=== PATIENT | male | born 1965 | race Caucasian/White ===

== ENCOUNTER 2017-12-25 19:09 | Emergency (ER) | payer MEDICAID ==
[~2017-12-25] VITALS: Ht 167.6 cm; Wt 100.0 kg
[~2017-12-25 19:09] MED LIST: CLIN300C53 PO; IBUP-1985 PO; LEVO500T2 PO
[2017-12-25] MEDS ORDERED: aspirin 81mg tab.chew PO ONE (19:15)
[2017-12-25] MEDS ORDERED: nitroGLYCERIN 0.4mg SUBLingual tab SL PRN (19:15)
[2017-12-25 19:38] LABS: BASOPHILS % (AUTO) 0.2 % (0-1); EOSINOPHILS # (AUTO) 0.2 X10'3 (0-0.9); EOSINOPHILS % (AUTO) 1.9 % (0-6); HEMOGLOBIN 14.4 g/dl (14.0-17.9); LYMPHOCYTES # (AUTO) 3.2 X10'3 (1.1-4.8); MEAN CORPUSCULAR HEMOGLOBIN 29.2 PG (27.0-31.0); MEAN CORPUSCULAR HGB CONC 34.3 % (33.0-36.5); MEAN CORPUSCULAR VOLUME 85.2 FL (78-98); MEAN PLATELET VOLUME 8.2 FL (7.4-10.4); MONOCYTES # (AUTO) 0.8 X10'3 (0-0.9); MONOCYTES % (AUTO) 8.8 % (2-12); NEUTROPHILS # (AUTO) 4.9 X10'3 (1.8-7.7); NEUTROPHILS % (AUTO) 54.1 % (42-75); PLATELET COUNT 294 X10'3 (140-440); RED BLOOD COUNT 4.94 X10'6 (4.70-6.10); RED CELL DISTRIBUTION WIDTH 13.9 % (11.5-14.5)
[2017-12-25 19:50] LABS: INR 0.9 INR; PARTIAL THROMBOPLASTIN TIME 25 SECONDS (22-32); PROTHROMBIN TIME 9.6 SECONDS (9.0-12.0)
[2017-12-25 19:56] LABS: ALANINE AMINOTRANSFERASE 117 U/L (12-78); ALBUMIN 3.7 G/DL (3.4-5.0); ALBUMIN/GLOBULIN RATIO 1.1 (1.1-1.5); ALKALINE PHOSPHATASE 86 IU/L (46-116); ANION GAP 10 (8-16); ASPARTATE AMINO TRANSFERASE 146 U/L (10-37); BILIRUBIN,TOTAL 0.7 MG/DL (0.1-1.0); BLOOD UREA NITROGEN 12 MG/DL (7-18); BUN/CREATININE RATIO 12.6 (5.4-32.0); CALCIUM 8.7 MG/DL (8.5-10.1); CHLORIDE 107 MMOL/L (99-107); CREATININE 0.95 MG/DL (0.60-1.10); GLUCOSE 167 MG/DL (70-104); POTASSIUM 3.8 MMOL/L (3.5-5.1); SODIUM 142 MMOL/L (135-145); TOTAL CARBON DIOXIDE 25.4 MMOL/L (24-32); TOTAL PROTEIN 7.1 G/DL (6.4-8.2); eGFR 83 ML/MIN
[2017-12-25 21:34] LABS: ETHANOL < 0.010 GM/DL (0.0-0.010)
[2017-12-25 21:48] LABS: CLARITY,URINE CLEAR (Clear); COLOR,URINE YELLOW (Yellow); GLUCOSE, URINE NEGATIVE (Neg); KETONES,URINE NEGATIVE (Neg); LEUKOCYTE ESTERASE ,URINE NEGATIVE (Neg); NITRITES, URINE NEGATIVE (Neg); OCCULT BLOOD,URINE NEGATIVE (Neg); PROTEIN,URINE NEGATIVE (Neg)
[2017-12-25 21:50] LABS: URINE AMPHETAMINE SCREEN NEGATIVE (Neg); URINE BARBITUATE SCREEN NEGATIVE (Neg); URINE BENZODIAZEPINES SCREEN NEGATIVE (Neg); URINE CANNABINOID SCREEN NEGATIVE (Neg); URINE COCAINE SCREEN NEGATIVE (Neg); URINE METHADONE SCREEN NEGATIVE (Neg); URINE OPIATE SCREEN NEGATIVE (Neg); URINE PHENCYCLIDINE SCREEN NEGATIVE (Neg)
[2017-12-25] MEDS ORDERED: amLODIPine 5mg tablet PO ONE (21:50)
[2017-12-25] MEDS ORDERED: nitroGLYCERIN 0.2mg/hour patch TD ONE (21:50)
[2017-12-25 21:53] LABS: UA COLLECTION TYPE VOIDED
[2017-12-25 23:18] VITALS: BP 191/114
== END 2017-12-25 23:20 | disposition home or self-care (01) ==
LOC: ER 19:10
DX: I10 Essential (primary) hypertension (principal); E11.9 Type 2 diabetes mellitus without complications; Z87.891 Personal history of nicotine dependence; Z88.0 Allergy status to penicillin; Z79.899 Other long term (current) drug therapy
CPT/HCPCS: 36415; 71045; 80053; 80305; 80320; 81003; 84484; 85025; 85610; 85730; 93005; 99285

== ENCOUNTER 2018-09-15 09:30 | Observation (INO) | payer MEDICAID ==
[~2018-09-15] VITALS: Ht 167.6 cm; Wt 109.1 kg
[2018-09-15] MEDS ORDERED: NO HOME MEDS (09:47)
[2018-09-15 09:59] LABS: BASOPHILS % (AUTO) 0.1 % (0-1); EOSINOPHILS # (AUTO) 0.2 X10'3 (0-0.9); EOSINOPHILS % (AUTO) 3.7 % (0-6); HEMATOCRIT 41.7 % (42.0-52.0); HEMOGLOBIN 13.8 g/dl (14.0-17.9); LYMPHOCYTES # (AUTO) 1.9 X10'3 (1.1-4.8); LYMPHOCYTES % (AUTO) 30.8 % (21-51); MEAN CORPUSCULAR HEMOGLOBIN 28.2 PG (27.0-31.0); MEAN CORPUSCULAR HGB CONC 33.1 % (33.0-36.5); MEAN CORPUSCULAR VOLUME 85.2 FL (78-98); MEAN PLATELET VOLUME 8.2 FL (7.4-10.4); MONOCYTES # (AUTO) 0.4 X10'3 (0-0.9); MONOCYTES % (AUTO) 6.8 % (2-12); NEUTROPHILS # (AUTO) 3.6 X10'3 (1.8-7.7); NEUTROPHILS % (AUTO) 58.6 % (42-75); PLATELET COUNT 298 X10'3 (140-440); RED BLOOD COUNT 4.89 X10'6 (4.70-6.10); RED CELL DISTRIBUTION WIDTH 13.6 % (11.5-14.5); WHITE BLOOD COUNT 6.2 X10'3 (4.5-11.0)
[2018-09-15] MEDS ORDERED: nitroGLYCERIN 0.4mg SUBLingual tab SL PRN ×3 (10:05→12:10)
[2018-09-15 10:11] LABS: PARTIAL THROMBOPLASTIN TIME 27 SECONDS (22-32); PROTHROMBIN TIME 10.3 SECONDS (9.0-12.0)
[2018-09-15 10:14] LABS: ALANINE AMINOTRANSFERASE 34 U/L (12-78); ALBUMIN 3.3 G/DL (3.4-5.0); ALBUMIN/GLOBULIN RATIO 1.1 (1.1-1.5); ALKALINE PHOSPHATASE 70 IU/L (46-116); ANION GAP 9 (8-16); ASPARTATE AMINO TRANSFERASE 29 U/L (10-37); BILIRUBIN,TOTAL 0.9 MG/DL (0.1-1.0); BLOOD UREA NITROGEN 16 MG/DL (7-18); BUN/CREATININE RATIO 15.5 (5.4-32.0); CALCIUM 8.6 MG/DL (8.5-10.1); CHLORIDE 106 MMOL/L (99-107); CREATININE 1.03 MG/DL (0.60-1.10); GLUCOSE 168 MG/DL (70-104); POTASSIUM 3.6 MMOL/L (3.5-5.1); SODIUM 143 MMOL/L (135-145); TOTAL PROTEIN 6.4 G/DL (6.4-8.2); eGFR 76 ML/MIN
[2018-09-15 10:28] LABS: D-DIMER 0.44 MG/L FEU (0-0.50)
[2018-09-15 10:36] LABS: MAGNESIUM 1.5 MG/DL (1.5-2.4)
[2018-09-15] MEDS ORDERED: MESSAGE TO PHARMACY PO ONE (12:10)
[2018-09-15] MEDS ORDERED: potassium Cl 20 mEq SR tablet PO PRN ×2 (12:10)
[2018-09-15] MEDS ORDERED: glucagon, human recombinant 1mg kit SUBCUT PRN (12:10)
[2018-09-15] MEDS ORDERED: dextrose 50%-water 50ml dispensing syringe IV PRN ×2 (12:10)
[2018-09-15] MEDS ORDERED: regadenoson 0.4mg/5ml syringe IV PRN (12:10)
[2018-09-15] MEDS ORDERED: acetaminophen 325mg tablet PO PRN ×2 (12:10)
[2018-09-15] MEDS ORDERED: magnesium 1gm/100ml D5W IVPB 100 ML IV PRN (12:10)
[2018-09-15] MEDS ORDERED: magnesium Cl slow-release 64mg tablet PO PRN (12:10)
[2018-09-15] MEDS ORDERED: metoprolol tartrate 1mg/ml inj IV PRN (12:10)
[2018-09-15] MEDS ORDERED: magnesium 4gm in 100ml NS 100 ML IV PRN (12:10)
[2018-09-15] MEDS ORDERED: morphine 2 MG/ML inj. syringe IV PRN ×2 (12:10)
[2018-09-15] MEDS ORDERED: insulin Lispro (HumaLOG) vial - multi-dose SQ SCH (12:10)
[2018-09-15] MEDS ORDERED: mag hydrox/Alum hydrox/simeth 30ml oral suspension PO PRN (12:10)
[2018-09-15] MEDS ORDERED: dextrose ORAL solution 15 GM/59 ML bottle PO PRN ×2 (12:10)
[2018-09-15] MEDS ORDERED: aminophylline 250mg/10ml inj. IV PRN (12:10)
[2018-09-15] MEDS ORDERED: potassium Cl 40MEQ/NS 500ml 500 ML IV PRN ×2 (12:10)
[2018-09-15] MEDS ORDERED: ondansetron/PF 4mg/2ml inj IV PRN (12:10)
[2018-09-15] MEDS ORDERED: magnesium hydroxide 30ml (MOM) UD suspension PO PRN (12:10)
[2018-09-15 19:00] VITALS: BP 176/81
[2018-09-15] MEDS ORDERED: temazepam 15mg capsule PO PRN (21:00)
[2018-09-15] MEDS ORDERED: insulin glargine (Lantus) pen - multi-dose SQ SCH (21:00)
[2018-09-15] MEDS: metoprolol tartrate 12.5mg (1/2 tablet) PO SCH (21:25)
[2018-09-15 23:00] VITALS: BP 167/76
[2018-09-16] VITALS (11 sets, daily range): BP systolic 154–173; BP diastolic 84–95
[2018-09-16 05:38] LABS: HEMATOCRIT 41.5 % (42.0-52.0); HEMOGLOBIN 13.6 g/dl (14.0-17.9); MEAN CORPUSCULAR HEMOGLOBIN 28.2 PG (27.0-31.0); MEAN CORPUSCULAR HGB CONC 32.8 % (33.0-36.5); MEAN PLATELET VOLUME 8.6 FL (7.4-10.4); PLATELET COUNT 280 X10'3 (140-440); RED BLOOD COUNT 4.82 X10'6 (4.70-6.10); RED CELL DISTRIBUTION WIDTH 13.3 % (11.5-14.5); WHITE BLOOD COUNT 7.4 X10'3 (4.5-11.0)
[2018-09-16 06:13] LABS: ALBUMIN 3.2 G/DL (3.4-5.0); ANION GAP 7 (8-16); BLOOD UREA NITROGEN 19 MG/DL (7-18); BUN/CREATININE RATIO 22.9 (5.4-32.0); CALCIUM 8.5 MG/DL (8.5-10.1); CHLORIDE 106 MMOL/L (99-107); CHOL/HDL RATIO 2.6 (0.00-4.99); CHOLESTEROL 125 MG/DL (0-200); CREATININE 0.83 MG/DL (0.60-1.10); GLUCOSE 114 MG/DL (70-104); HDL CHOLESTEROL 48 MG/DL (35-60); LDL CHOLESTEROL 71 MG/DL (50-100); MAGNESIUM 1.6 MG/DL (1.5-2.4); POTASSIUM 3.8 MMOL/L (3.5-5.1); SODIUM 142 MMOL/L (135-145); TOTAL CARBON DIOXIDE 28.7 MMOL/L (24-32); TRIGLYCERIDES 48 MG/DL (20-135); eGFR > 90 ML/MIN
[2018-09-16] MEDS ORDERED: K and/or MAG REPLACEMENT MC SCH (08:00)
[2018-09-16] MEDS: enoxaparin 40mg/0.4ml syringe SUBCUT SCH ×2 (08:18→08:23)
[2018-09-16] MEDS: metoprolol tartrate 12.5mg (1/2 tablet) PO SCH (08:18)
[2018-09-16] MEDS ORDERED: aspirin 325mg tablet PO SCH (08:30)
[2018-09-16] MEDS ORDERED: HYDROcodone/acetaminophen 5mg/325mg tablet PO PRN (09:25)
[2018-09-16] MEDS ORDERED: aminophylline inj. 10 ML IV ONE (10:49)
[2018-09-16] MEDS ORDERED: regadenoson 0.4mg/5ml syringe IV ONE (10:49)
== END 2018-09-16 15:03 | disposition home or self-care (01) ==
LOC: ER 09:30 → ED HOLD 12:07 → PCU 3S 16:04
PROVIDERS: ADMIT Family Medicine; ATTEND Family Medicine
DX: I20.9 Angina pectoris, unspecified (principal); I10 Essential (primary) hypertension; E78.00 Pure hypercholesterolemia, unspecified; K21.9 Gastro-esophageal reflux disease without esophagitis; E66.01 Morbid (severe) obesity due to excess calories; E11.65 Type 2 diabetes mellitus with hyperglycemia; Z87.891 Personal history of nicotine dependence
CPT/HCPCS: 36415; 71045; 78451; 80048; 80053; 80061; 82948; 83036; 83735; 83880; 84484; 85025; 85027; 85379; 85610; 85730; 93005; 93017; 93306; 96372; 96374; 99284; A9500; G0378; J0280; J2405; J1650; J1815; Q2037

== ENCOUNTER 2019-03-22 18:18 | Emergency (ER) | payer MEDICAID ==
[~2019-03-22] VITALS: Ht 167.6 cm; Wt 110.0 kg
[~2019-03-22 18:18] MED LIST changes: -CLIN300C53 PO; -IBUP-1985 PO; -LEVO500T2 PO; +NO HOME MEDS
[2019-03-22 18:39] VITALS: BP 178/88
[2019-03-22] MEDS ORDERED: SKIN30CL4 TOP (19:20)
[2019-03-22] MEDS ORDERED: triamcinolone acetonide 40mg/ml inj IM ONE (19:20)
== END 2019-03-22 19:34 | disposition home or self-care (01) ==
LOC: ER 18:19
DX: L23.7 Allergic contact dermatitis due to plants, except food (principal); E78.00 Pure hypercholesterolemia, unspecified; I10 Essential (primary) hypertension; K21.9 Gastro-esophageal reflux disease without esophagitis; E11.9 Type 2 diabetes mellitus without complications; Z88.0 Allergy status to penicillin; Z79.899 Other long term (current) drug therapy; Z91.013 Allergy to seafood
CPT/HCPCS: 96372; 99283; J3301

== ENCOUNTER 2019-04-04 13:48 | Emergency (ER) | payer MEDICAID ==
[~2019-04-04] VITALS: Ht 167.6 cm; Wt 104.5 kg
[~2019-04-04 13:48] MED LIST changes: +SKIN30CL4 TOP
[2019-04-04 14:08] VITALS: BP 163/87
[2019-04-04] MEDS ORDERED: SULF1TAB49 PO (15:29)
== END 2019-04-04 15:40 | disposition home or self-care (01) ==
LOC: ER 13:48
DX: L03.116 Cellulitis of left lower limb (principal); E78.00 Pure hypercholesterolemia, unspecified; I10 Essential (primary) hypertension; K21.9 Gastro-esophageal reflux disease without esophagitis; E11.9 Type 2 diabetes mellitus without complications; Z88.0 Allergy status to penicillin; Z91.013 Allergy to seafood
CPT/HCPCS: 99284

== ENCOUNTER 2019-06-20 11:49 | Emergency (ER) | payer MEDICAID ==
[~2019-06-20] VITALS: Ht 167.6 cm; Wt 105.5 kg
[2019-06-20 11:52] VITALS: BP 171/85
[2019-06-20] MEDS ORDERED: ACET-812 PO (12:39)
[2019-06-20] MEDS ORDERED: PRED20TA PO (12:39)
[2019-06-20] MEDS ORDERED: IBUP-1984 PO (12:39)
[2019-06-20] MEDS ORDERED: acetaminophen 325mg tablet PO ONE (12:40)
[2019-06-20] MEDS ORDERED: ketorolac trometh inj. 60 MG/2 ML VIAL IM ONE (12:40)
[2019-06-20] MEDS ORDERED: predniSONE 20 mg tablet PO ONE (12:40)
== END 2019-06-20 12:59 | disposition home or self-care (01) ==
LOC: ER 11:49
DX: M25.551 Pain in right hip (principal); E78.00 Pure hypercholesterolemia, unspecified; I10 Essential (primary) hypertension; K21.9 Gastro-esophageal reflux disease without esophagitis; E11.9 Type 2 diabetes mellitus without complications; Z88.0 Allergy status to penicillin; Z91.013 Allergy to seafood; Z79.899 Other long term (current) drug therapy; W01.0XXA Fall on same level from slipping, tripping and stumbling without subsequent striking against object, initial encounter; Y93.89 Activity, other specified; Y92.89 Other specified places as the place of occurrence of the external cause; Y99.8 Other external cause status
CPT/HCPCS: 96372; 99283; J1885; J7512

== ENCOUNTER 2019-08-17 12:05 | Emergency (ER) | payer MEDICAID ==
[~2019-08-17] VITALS: Ht 167.6 cm; Wt 230.0 kg
[~2019-08-17 12:05] MED LIST changes: +ACET-812 PO
[2019-08-17 12:19] VITALS: BP 158/87
[2019-08-17] MEDS ORDERED: triamcinolone acetonide 40mg/ml inj IM ONE (13:40)
== END 2019-08-17 13:55 | disposition home or self-care (01) ==
LOC: ER 12:05
DX: L23.7 Allergic contact dermatitis due to plants, except food (principal); E78.00 Pure hypercholesterolemia, unspecified; I10 Essential (primary) hypertension; K21.9 Gastro-esophageal reflux disease without esophagitis; E11.9 Type 2 diabetes mellitus without complications; F12.90 Cannabis use, unspecified, uncomplicated; Z88.0 Allergy status to penicillin; Z91.018 Allergy to other foods; Z79.899 Other long term (current) drug therapy
CPT/HCPCS: 96372; 99283; J3301

== ENCOUNTER 2019-09-11 13:58 | Emergency (ER) | payer MEDICAID ==
[~2019-09-11] VITALS: Ht 167.6 cm; Wt 104.0 kg
[2019-09-11 14:01] VITALS: BP 179/92
[2019-09-11] MEDS ORDERED: diphenhydrAMINE 2%/zinc acetate cream TP STA (15:24)
[2019-09-11] MEDS ORDERED: triamcinolone acetonide 40mg/ml inj IM ONE (15:25)
[2019-09-11] MEDS ORDERED: PRED20TA PO (15:43)
[2019-09-11] MEDS ORDERED: DIPH25CA83 PO (15:43)
== END 2019-09-11 15:54 | disposition home or self-care (01) ==
LOC: ER 13:59
DX: L23.7 Allergic contact dermatitis due to plants, except food (principal); E78.00 Pure hypercholesterolemia, unspecified; I10 Essential (primary) hypertension; K21.9 Gastro-esophageal reflux disease without esophagitis; E11.9 Type 2 diabetes mellitus without complications; F12.90 Cannabis use, unspecified, uncomplicated; Z88.0 Allergy status to penicillin; Z91.013 Allergy to seafood; Z79.899 Other long term (current) drug therapy
CPT/HCPCS: 96372; 99283; J3301

== ENCOUNTER 2020-04-03 14:11 | Emergency (ER) | payer MEDICAID ==
[~2020-04-03] VITALS: Ht 167.6 cm; Wt 125.0 kg
[~2020-04-03 14:11] MED LIST changes: +DIPH25CA83 PO
[2020-04-03 14:27] VITALS: BP 196/97
[2020-04-03] MEDS ORDERED: HYDROcodone/acetaminophen 5mg/325mg tablet PO ONE (15:50)
[2020-04-03] MEDS ORDERED: ondansetron 4mg rapidly disintigrating tab PO ONE (15:50)
[2020-04-03] MEDS ORDERED: IBUP-1984 PO (16:26)
== END 2020-04-03 17:07 | disposition home or self-care (01) ==
LOC: ER 14:11
DX: S93.402A Sprain of unspecified ligament of left ankle, initial encounter (principal); E78.00 Pure hypercholesterolemia, unspecified; I10 Essential (primary) hypertension; K21.9 Gastro-esophageal reflux disease without esophagitis; E11.9 Type 2 diabetes mellitus without complications; F12.90 Cannabis use, unspecified, uncomplicated; Z88.0 Allergy status to penicillin; Z91.018 Allergy to other foods; Z88.8 Allergy status to other drugs, medicaments and biological substances; Z79.899 Other long term (current) drug therapy; X50.1XXA Overexertion from prolonged static or awkward postures, initial encounter; Y93.89 Activity, other specified; Y92.89 Other specified places as the place of occurrence of the external cause; Y99.8 Other external cause status
CPT/HCPCS: 73610; 73630; 99284

== ENCOUNTER 2020-04-14 10:59 | Emergency (ER) | payer MEDICAID ==
[~2020-04-14] VITALS: Ht 167.6 cm; Wt 111.8 kg
[2020-04-14 12:36] VITALS: BP 180/97
[2020-04-14] MEDS ORDERED: LIDOcaine 1% W/epiNEPHrine 1:200,000 10ml vial IJ ONE (13:15)
[2020-04-14] MEDS ORDERED: rabies immune globulin/PF 150 unit/ml inj IMVAC ONE (13:15)
[2020-04-14] MEDS ORDERED: rabies vaccine (PCEC)/PF 2.5 unit kit IMVAC ONE (13:15)
[2020-04-14] MEDS ORDERED: SULF1TAB49 PO (15:15)
[2020-04-14] MEDS ORDERED: METR500T PO (15:15)
[2020-04-14] MEDS ORDERED: HYDR-4383 PO (15:39)
== END 2020-04-14 15:44 | disposition home or self-care (01) ==
LOC: ER 11:00
DX: S61.451A Open bite of right hand, initial encounter (principal); E78.00 Pure hypercholesterolemia, unspecified; I10 Essential (primary) hypertension; K21.9 Gastro-esophageal reflux disease without esophagitis; E11.9 Type 2 diabetes mellitus without complications; F12.90 Cannabis use, unspecified, uncomplicated; Z20.3 Contact with and (suspected) exposure to rabies; Z72.89 Other problems related to lifestyle; Z88.0 Allergy status to penicillin; Z88.8 Allergy status to other drugs, medicaments and biological substances; Z79.2 Long term (current) use of antibiotics; Z79.899 Other long term (current) drug therapy; W54.0XXA Bitten by dog, initial encounter; Y93.89 Activity, other specified; Y92.89 Other specified places as the place of occurrence of the external cause; Y99.8 Other external cause status
CPT/HCPCS: 12004; 29125; 90375; 90471; 90675; 96372; 99284

== ENCOUNTER 2020-07-05 13:53 | Emergency (ER) | payer MEDICAID ==
[~2020-07-05] VITALS: Ht 167.6 cm; Wt 114.0 kg
[~2020-07-05 13:53] MED LIST changes: +HYDR-4383 PO
--- NOTE | 2020-07-05 14:23 | NUR ---
Patient ambulated to room from lobby with steady gait.
[2020-07-05] MEDS ORDERED: ketorolac tromethamine 15mg/ml inj. IV ONE (14:30)
[2020-07-05 14:53] LABS: CLARITY,URINE CLOUDY (Clear); COLOR,URINE YELLOW (Yellow); GLUCOSE, URINE NEGATIVE (Neg); KETONES,URINE NEGATIVE (Neg); LEUKOCYTE ESTERASE ,URINE NEGATIVE (Neg); NITRITES, URINE NEGATIVE (Neg); OCCULT BLOOD,URINE LARGE (Neg); PROTEIN,URINE NEGATIVE (Neg); UROBILINOGEN,URINE 0.2 E.U/dL (0.2-1.0)
[2020-07-05 14:54] LABS: UA COLLECTION TYPE CLN CATCH MIDSTREAM
[2020-07-05 14:56] LABS: BASOPHILS % (AUTO) 0.4 % (0-1); EOSINOPHILS # (AUTO) 0.3 X10'3 (0-0.9); EOSINOPHILS % (AUTO) 2.5 % (0-6); HEMATOCRIT 43.5 % (42.0-52.0); HEMOGLOBIN 14.4 g/dl (14.0-17.9); LYMPHOCYTES # (AUTO) 2.6 X10'3 (1.1-4.8); LYMPHOCYTES % (AUTO) 25.7 % (21-51); MEAN CORPUSCULAR HEMOGLOBIN 28.6 PG (27.0-31.0); MEAN CORPUSCULAR HGB CONC 33.2 g/dL (33.0-36.5); MEAN CORPUSCULAR VOLUME 86.2 FL (78-98); MONOCYTES # (AUTO) 1.1 X10'3 (0-0.9); MONOCYTES % (AUTO) 10.4 % (2-12); NEUTROPHILS # (AUTO) 6.2 X10'3 (1.8-7.7); PLATELET COUNT 292 X10'3 (140-440); RED BLOOD COUNT 5.04 X10'6 (4.70-6.10); WHITE BLOOD COUNT 10.1 X10'3 (4.5-11.0)
[2020-07-05 15:00] LABS: BACTERIA,URINE FEW /HPF (Neg); RBC,URINE TNTC /HPF (0-2); SQUAMOUS EPITHELIAL CELL,UR FEW /LPF (FEW); WBC,URINE 0-4 /HPF (0-4)
[2020-07-05] MEDS ORDERED: LISI-604 PO (15:08)
[2020-07-05] MEDS ORDERED: METF500T PO (15:08)
[2020-07-05] MEDS ORDERED: NAPR-56 PO (15:08)
[2020-07-05 15:10] LABS: ALANINE AMINOTRANSFERASE 45 U/L (12-78); ALBUMIN 3.7 G/DL (3.4-5.0); ALBUMIN/GLOBULIN RATIO 1.2 (1.1-1.5); ALKALINE PHOSPHATASE 58 IU/L (46-116); ANION GAP 6 (8-16); ASPARTATE AMINO TRANSFERASE 21 U/L (10-37); BILIRUBIN,TOTAL 0.6 MG/DL (0.1-1.0); BLOOD UREA NITROGEN 22 MG/DL (7-18); BUN/CREATININE RATIO 25.6 (5.4-32.0); CALCIUM 9.3 MG/DL (8.5-10.1); CHLORIDE 108 MMOL/L (99-107); CREATININE 0.86 MG/DL (0.60-1.10); GLUCOSE 111 MG/DL (70-104); POTASSIUM 4.1 MMOL/L (3.5-5.1); SODIUM 142 MMOL/L (135-145); TOTAL CARBON DIOXIDE 28.5 MMOL/L (24-32); TOTAL PROTEIN 6.9 G/DL (6.4-8.2); eGFR > 90 ML/MIN
[2020-07-05] MEDS ORDERED: lisinopril 10 MG tablet PO ONE (15:10)
[2020-07-05] MEDS ORDERED: metFORMIN 500mg tablet PO ONE (15:10)
[2020-07-05 15:47] VITALS: BP 195/93
== END 2020-07-05 15:51 | disposition home or self-care (01) ==
LOC: ER 13:54
DX: R10.84 Generalized abdominal pain (principal); I10 Essential (primary) hypertension; E11.9 Type 2 diabetes mellitus without complications; E78.00 Pure hypercholesterolemia, unspecified; K21.9 Gastro-esophageal reflux disease without esophagitis; Z72.89 Other problems related to lifestyle; Z88.0 Allergy status to penicillin; Z88.8 Allergy status to other drugs, medicaments and biological substances; Z79.899 Other long term (current) drug therapy
CPT/HCPCS: 36415; 80053; 81001; 85025; 96374; 99283; J1885

== ENCOUNTER 2020-07-09 03:40 | Emergency (ER) | payer MEDICAID ==
[~2020-07-09] VITALS: Ht 170.2 cm; Wt 113.6 kg
[~2020-07-09 03:40] MED LIST changes: +LISI-604 PO; +METF500T PO; +NAPR-56 PO
[2020-07-09] MEDS ORDERED: ketorolac trometh. 30mg/ml inj. IV ONE (03:45)
[2020-07-09] MEDS ORDERED: normal saline 1000ML IV soln IVB ONE (03:45)
[2020-07-09] MEDS ORDERED: morphine 4 MG/ML inj SYRINge IV ONE (03:50)
[2020-07-09] MEDS ORDERED: proCHLORperazine 10 MG/2 ml inj IV ONE (03:50)
[2020-07-09 04:01] LABS: BASOPHILS % (AUTO) 0.4 % (0-1); EOSINOPHILS # (AUTO) 0.3 X10'3 (0-0.9); EOSINOPHILS % (AUTO) 3.4 % (0-6); HEMATOCRIT 42.8 % (42.0-52.0); HEMOGLOBIN 14.4 g/dl (14.0-17.9); LYMPHOCYTES # (AUTO) 3.3 X10'3 (1.1-4.8); LYMPHOCYTES % (AUTO) 42.5 % (21-51); MEAN CORPUSCULAR HEMOGLOBIN 28.8 PG (27.0-31.0); MEAN CORPUSCULAR HGB CONC 33.6 g/dL (33.0-36.5); MEAN CORPUSCULAR VOLUME 85.6 FL (78-98); MONOCYTES % (AUTO) 12.9 % (2-12); NEUTROPHILS # (AUTO) 3.2 X10'3 (1.8-7.7); NEUTROPHILS % (AUTO) 40.8 % (42-75); PLATELET COUNT 308 X10'3 (140-440); RED CELL DISTRIBUTION WIDTH 13.8 % (11.5-14.5); WHITE BLOOD COUNT 7.9 X10'3 (4.5-11.0)
[2020-07-09 04:19] LABS: ALANINE AMINOTRANSFERASE 48 U/L (12-78); ALBUMIN 3.8 G/DL (3.4-5.0); ALBUMIN/GLOBULIN RATIO 1.2 (1.1-1.5); ALKALINE PHOSPHATASE 55 IU/L (46-116); ANION GAP 8 (8-16); ASPARTATE AMINO TRANSFERASE 23 U/L (10-37); BILIRUBIN,TOTAL 0.8 MG/DL (0.1-1.0); BLOOD UREA NITROGEN 24 MG/DL (7-18); BUN/CREATININE RATIO 19.2 (5.4-32.0); CALCIUM 9.3 MG/DL (8.5-10.1); CHLORIDE 107 MMOL/L (99-107); CREATININE 1.25 MG/DL (0.60-1.10); GLUCOSE 109 MG/DL (70-104); LIPASE 457 U/L (73-393); POTASSIUM 3.7 MMOL/L (3.5-5.1); SODIUM 143 MMOL/L (135-145); eGFR 60 ML/MIN
[2020-07-09] MEDS ORDERED: FLO0.4C PO (04:43)
[2020-07-09] MEDS ORDERED: HYDR-3965 PO (04:43)
[2020-07-09 05:12] VITALS: BP 143/80
[2020-07-09 05:14] LABS: CLARITY,URINE CLEAR (Clear); COLOR,URINE YELLOW (Yellow); GLUCOSE, URINE NEGATIVE (Neg); KETONES,URINE NEGATIVE (Neg); LEUKOCYTE ESTERASE ,URINE NEGATIVE (Neg); NITRITES, URINE NEGATIVE (Neg); OCCULT BLOOD,URINE LARGE (Neg); PH,URINE 6.5 (4.8-8.0); PROTEIN,URINE NEGATIVE (Neg); UA COLLECTION TYPE URINAL; UROBILINOGEN,URINE 0.2 E.U/dL (0.2-1.0)
[2020-07-09 05:16] LABS: BACTERIA,URINE NONE SEEN /HPF (Neg); MUCUS STRANDS NONE SEEN /LPF (Neg); RBC,URINE 20-50 /HPF (0-2); SQUAMOUS EPITHELIAL CELL,UR FEW /LPF (FEW); WBC,URINE 0-4 /HPF (0-4)
== END 2020-07-09 05:13 | disposition home or self-care (01) ==
LOC: ER 03:40
DX: N20.0 Calculus of kidney (principal); E78.00 Pure hypercholesterolemia, unspecified; I10 Essential (primary) hypertension; K21.9 Gastro-esophageal reflux disease without esophagitis; E11.9 Type 2 diabetes mellitus without complications; Z72.89 Other problems related to lifestyle; Z88.0 Allergy status to penicillin; Z88.8 Allergy status to other drugs, medicaments and biological substances; Z91.013 Allergy to seafood; Z79.899 Other long term (current) drug therapy; Z79.84 Long term (current) use of oral hypoglycemic drugs
CPT/HCPCS: 36415; 74176; 80053; 81001; 83690; 85025; 96361; 96374; 96375; 99284; J0780; J1885; J2270; J7030

== ENCOUNTER 2020-10-26 18:05 | Emergency (ER) | payer MEDICAID ==
[~2020-10-26] VITALS: Ht 167.6 cm; Wt 118.2 kg
[~2020-10-26 18:05] MED LIST changes: -NAPR-56 PO
[2020-10-26 20:49] VITALS: BP 188/109
[2020-10-26] MEDS ORDERED: ketorolac trometh. 30mg/ml inj. IM ONE (21:05)
[2020-10-26] MEDS ORDERED: LIDO1ADH TOP (21:05)
[2020-10-26] MEDS ORDERED: IBUP-1984 PO (21:05)
== END 2020-10-26 21:28 | disposition home or self-care (01) ==
LOC: ER 18:09
DX: M25.552 Pain in left hip (principal); E78.00 Pure hypercholesterolemia, unspecified; I10 Essential (primary) hypertension; E11.9 Type 2 diabetes mellitus without complications; K21.9 Gastro-esophageal reflux disease without esophagitis; Z88.0 Allergy status to penicillin; Z91.013 Allergy to seafood; Z88.8 Allergy status to other drugs, medicaments and biological substances; X58.XXXA Exposure to other specified factors, initial encounter; Y93.89 Activity, other specified; Y92.89 Other specified places as the place of occurrence of the external cause; Y99.8 Other external cause status
CPT/HCPCS: 73502; 96372; 99283; J1885

== ENCOUNTER 2020-12-13 05:51 | Emergency (ER) | payer MEDICAID ==
[~2020-12-13] VITALS: Ht 167.6 cm; Wt 118.8 kg
[~2020-12-13 05:51] MED LIST changes: +LIDO1ADH TOP
[2020-12-13] MEDS ORDERED: ketorolac trometh. 30mg/ml inj. IV ONE (06:20)
[2020-12-13] MEDS ORDERED: normal saline 1000ML IV soln IVB ONE (06:20)
[2020-12-13] MEDS ORDERED: acetaminophen 325mg tablet PO ONE (06:20)
[2020-12-13 06:31] LABS: CLARITY,URINE CLEAR (Clear); COLOR,URINE YELLOW (Yellow); GLUCOSE, URINE NEGATIVE (Neg); KETONES,URINE NEGATIVE (Neg); LEUKOCYTE ESTERASE ,URINE NEGATIVE (Neg); NITRITES, URINE NEGATIVE (Neg); OCCULT BLOOD,URINE MODERATE (Neg); PROTEIN,URINE NEGATIVE (Neg); UROBILINOGEN,URINE 0.2 E.U/dL (0.2-1.0)
[2020-12-13 06:32] LABS: UA COLLECTION TYPE CLN CATCH MIDSTREAM
[2020-12-13 06:42] LABS: RBC,URINE 20-50 /HPF (0-2); SQUAMOUS EPITHELIAL CELL,UR NONE SEEN /LPF (FEW)
[2020-12-13 06:43] LABS: BACTERIA,URINE NONE SEEN /HPF (Neg); WBC,URINE 0-4 /HPF (0-4)
[2020-12-13 06:52] LABS: BASOPHILS % (AUTO) 0.4 % (0-1); EOSINOPHILS # (AUTO) 0.3 X10'3 (0-0.9); HEMATOCRIT 41.2 % (42.0-52.0); HEMOGLOBIN 14.3 g/dl (14.0-17.9); LYMPHOCYTES % (AUTO) 34.9 % (21-51); MEAN CORPUSCULAR HEMOGLOBIN 29.4 PG (27.0-31.0); MEAN CORPUSCULAR HGB CONC 34.7 g/dL (33.0-36.5); MEAN CORPUSCULAR VOLUME 84.6 FL (78-98); MEAN PLATELET VOLUME 8.5 FL (7.4-10.4); MONOCYTES % (AUTO) 11.6 % (2-12); NEUTROPHILS # (AUTO) 4.3 X10'3 (1.8-7.7); NEUTROPHILS % (AUTO) 49.1 % (42-75); PLATELET COUNT 270 X10'3 (140-440); RED BLOOD COUNT 4.87 X10'6 (4.70-6.10); RED CELL DISTRIBUTION WIDTH 13.9 % (11.5-14.5); WHITE BLOOD COUNT 8.7 X10'3 (4.5-11.0)
[2020-12-13 07:10] LABS: ALANINE AMINOTRANSFERASE 91 U/L (12-78); ALBUMIN 3.5 G/DL (3.4-5.0); ALBUMIN/GLOBULIN RATIO 1.1 (1.1-1.5); ALKALINE PHOSPHATASE 61 IU/L (46-116); ANION GAP 7 (8-16); ASPARTATE AMINO TRANSFERASE 33 U/L (10-37); BILIRUBIN,TOTAL 0.5 MG/DL (0.1-1.0); BLOOD UREA NITROGEN 22 MG/DL (7-18); BUN/CREATININE RATIO 23.2 (5.4-32.0); CALCIUM 9.5 MG/DL (8.5-10.1); CHLORIDE 107 MMOL/L (99-107); CREATININE 0.95 MG/DL (0.60-1.10); GLUCOSE 130 MG/DL (70-104); LIPASE 953 U/L (73-393); POTASSIUM 4.1 MMOL/L (3.5-5.1); SODIUM 143 MMOL/L (135-145); TOTAL CARBON DIOXIDE 29.4 MMOL/L (24-32); TOTAL PROTEIN 6.8 G/DL (6.4-8.2); eGFR 82 ML/MIN
[2020-12-13] MEDS ORDERED: FLO0.4C PO (08:00)
[2020-12-13] MEDS ORDERED: LISI10TA4 PO (08:07)
[2020-12-13 08:12] VITALS: BP 181/96
== END 2020-12-13 08:12 | disposition home or self-care (01) ==
LOC: ER 05:51
DX: R10.84 Generalized abdominal pain (principal); E78.00 Pure hypercholesterolemia, unspecified; I10 Essential (primary) hypertension; K21.9 Gastro-esophageal reflux disease without esophagitis; E11.9 Type 2 diabetes mellitus without complications; Z72.89 Other problems related to lifestyle; Z88.0 Allergy status to penicillin; Z91.018 Allergy to other foods; Z79.899 Other long term (current) drug therapy
CPT/HCPCS: 36415; 80053; 81001; 83690; 84145; 85025; 96361; 96374; 99283; J1885; J7030

== ENCOUNTER 2021-05-04 10:00 | Emergency (ER) | payer MEDICAID ==
[~2021-05-04] VITALS: Ht 167.6 cm; Wt 122.9 kg
[~2021-05-04 10:00] MED LIST changes: -LISI-604 PO; +LISI-790 PO; +LISI10TA27 PO
[2021-05-04] MEDS ORDERED: ketorolac tromethamine 15mg/ml inj. IV ONE (11:50)
--- NOTE | 2021-05-04 12:13 | NUR ---
Per ER provider, Toradol "ok" to be given IM.
[2021-05-04 12:19] LABS: BASOPHILS % (AUTO) 0.4 % (0-1); EOSINOPHILS # (AUTO) 0.2 X10'3 (0-0.9); EOSINOPHILS % (AUTO) 2.3 % (0-6); HEMATOCRIT 44.6 % (42.0-52.0); HEMOGLOBIN 15.1 g/dl (14.0-17.9); LYMPHOCYTES # (AUTO) 2.4 X10'3 (1.1-4.8); LYMPHOCYTES % (AUTO) 27.2 % (21-51); MEAN CORPUSCULAR HEMOGLOBIN 29.1 PG (27.0-31.0); MEAN CORPUSCULAR HGB CONC 33.9 g/dL (33.0-36.5); MEAN CORPUSCULAR VOLUME 85.8 FL (78-98); MEAN PLATELET VOLUME 8.1 FL (7.4-10.4); MONOCYTES # (AUTO) 0.9 X10'3 (0-0.9); MONOCYTES % (AUTO) 9.9 % (2-12); NEUTROPHILS # (AUTO) 5.3 X10'3 (1.8-7.7); NEUTROPHILS % (AUTO) 60.2 % (42-75); PLATELET COUNT 281 X10'3 (140-440); RED CELL DISTRIBUTION WIDTH 13.5 % (11.5-14.5); WHITE BLOOD COUNT 8.9 X10'3 (4.5-11.0)
[2021-05-04 12:34] LABS: ALANINE AMINOTRANSFERASE 58 U/L (12-78); ALBUMIN 3.8 G/DL (3.4-5.0); ALBUMIN/GLOBULIN RATIO 1.1 (1.1-1.5); ALKALINE PHOSPHATASE 68 IU/L (46-116); ANION GAP 8 (8-16); ASPARTATE AMINO TRANSFERASE 27 U/L (10-37); BLOOD UREA NITROGEN 14 MG/DL (7-18); BUN/CREATININE RATIO 17.5 (5.4-32.0); CALCIUM 8.8 MG/DL (8.5-10.1); CHLORIDE 104 MMOL/L (99-107); GLUCOSE 133 MG/DL (70-104); SODIUM 139 MMOL/L (135-145); TOTAL CARBON DIOXIDE 27.5 MMOL/L (24-32); TOTAL PROTEIN 7.4 G/DL (6.4-8.2); eGFR > 90 ML/MIN
[2021-05-04 12:55] VITALS: BP 190/103
[2021-05-04] MEDS ORDERED: COLC0.6C3 PO (13:28)
[2021-05-04] MEDS ORDERED: INDO50CA96 PO (13:30)
== END 2021-05-04 14:21 | disposition home or self-care (01) ==
LOC: ER 10:01
DX: M25.521 Pain in right elbow (principal); E78.00 Pure hypercholesterolemia, unspecified; I10 Essential (primary) hypertension; K21.9 Gastro-esophageal reflux disease without esophagitis; E11.9 Type 2 diabetes mellitus without complications; Z72.89 Other problems related to lifestyle; Z88.0 Allergy status to penicillin; Z91.013 Allergy to seafood; Z88.8 Allergy status to other drugs, medicaments and biological substances; Z79.899 Other long term (current) drug therapy
CPT/HCPCS: 36415; 73080; 80053; 84550; 85025; 85651; 96374; 99284; J1885

== ENCOUNTER 2021-05-05 11:49 | Emergency (ER) | payer MEDICAID ==
[~2021-05-05] VITALS: Ht 167.6 cm; Wt 124.4 kg
[~2021-05-05 11:49] MED LIST changes: +COLC0.6C3 PO; +INDO50CA96 PO
[2021-05-05 11:53] VITALS: BP 175/83
[2021-05-05] MEDS ORDERED: naproxen 500mg tablet PO ONE (12:15)
== END 2021-05-05 13:06 | disposition home or self-care (01) ==
LOC: ER 11:49
DX: M25.521 Pain in right elbow (principal); E78.00 Pure hypercholesterolemia, unspecified; I10 Essential (primary) hypertension; K21.9 Gastro-esophageal reflux disease without esophagitis; E11.9 Type 2 diabetes mellitus without complications; Z72.89 Other problems related to lifestyle; Z88.0 Allergy status to penicillin; Z88.8 Allergy status to other drugs, medicaments and biological substances; Z79.899 Other long term (current) drug therapy
CPT/HCPCS: 99282

== ENCOUNTER 2021-05-10 09:16 | Emergency (ER) | payer MEDICAID ==
[~2021-05-10] VITALS: Ht 167.6 cm; Wt 125.1 kg
[2021-05-10 09:21] VITALS: BP 217/101
[2021-05-10] MEDS ORDERED: AMLO5TAB4 PO (09:56)
--- NOTE | 2021-05-10 10:05 | NUR ---
Patient seen and assessed by provider.
== END 2021-05-10 10:05 | disposition home or self-care (01) ==
LOC: ER 09:18
DX: M10.9 Gout, unspecified (principal); I10 Essential (primary) hypertension; E78.00 Pure hypercholesterolemia, unspecified; K21.9 Gastro-esophageal reflux disease without esophagitis; E11.9 Type 2 diabetes mellitus without complications; Z72.89 Other problems related to lifestyle; Z88.0 Allergy status to penicillin; Z88.8 Allergy status to other drugs, medicaments and biological substances; Z91.018 Allergy to other foods; Z79.899 Other long term (current) drug therapy
CPT/HCPCS: 99283